=== PATIENT | female | born 1985 | race Caucasian/White ===

== ENCOUNTER → 2021-01-19 08:51 | Outpatient (BNVA) | payer SELFPAY | PROVIDERS: PCP Nurse Practitioner Family; Visit Provider Nurse Practitioner Family | DX: E55.9 Vitamin D deficiency, unspecified (principal); R73.09 Other abnormal glucose; R53.83 Other fatigue; Z13.6 Encounter for screening for cardiovascular disorders; Z79.899 Other long term (current) drug therapy; D64.9 Anemia, unspecified; M25.572 Pain in left ankle and joints of left foot | CPT/HCPCS: 73630; 80053; 80061; 81003; 82306; 83036; 83550; 84439; 84443; 84550; 85025 ==

== ENCOUNTER → 2021-02-02 00:01 | Outpatient (BNVA) | payer SELFPAY | PROVIDERS: PCP Nurse Practitioner Family; Visit Provider Nurse Practitioner Family | DX: R31.9 Hematuria, unspecified (principal); K21.9 Gastro-esophageal reflux disease without esophagitis | CPT/HCPCS: 81003 ==